=== PATIENT | male | born 1970 | race Two or more races ===

== ENCOUNTER 2020-08-21 06:28 | Outpatient (REF) | payer OTHER, SELFPAY ==
[2020-08-21 07:02] LABS: MANUAL DIFF FLAG NO
[2020-08-21 07:06] LABS: Basophils Absolute Auto 0.1 X10*3/uL (0.0-0.2); Basophils Percent Auto 0.8 % (0-2); Eosinophils Absolute Auto 0.2 X10*3/uL (0.0-0.4); Eosinophils Percent Auto 2.4 % (0-4); Hematocrit 47.1 % (42-52); Hemoglobin 15.6 g/dl (14.0-18.0); Imm Gran Abs Auto 0.02 X10*3/uL (0.00-0.03); Imm Gran Pct Auto 0.3 % (0.0-0.4); Lymphocytes Absolute Auto 2.4 X10*3/uL (1.2-4.9); Mean Corpuscular HGB Conc 33.1 g/dl (31.0-36.0); Mean Corpuscular Hemoglobin 26.5 pg (27.0-33.0); Mean Platelet Volume 9.3 fL (9.4-12.4); Monocytes Absolute Auto 0.8 X10*3/uL (0.1-1.2); Monocytes Percent Auto 11.6 % (2-11); Neutrophils Absolute Auto 3.1 X10*3/uL (2.0-8.3); Neutrophils Percent Auto 47.9 % (45-73); Platelet Count 253 X10*3/uL (160-400); Red Blood Count 5.89 X10*6/uL (4.60-5.80); Red Cell Distribution Width 13.5 % (11.0-16.0); White Blood Count 6.5 X10*3/uL (4.8-10.8)
[2020-08-21 07:35] LABS: Alanine Aminotransferase 35 U/L (0-40); Albumin Level 4.5 g/dL (3.5-5.0); Alkaline Phosphatase 68 U/L (39-117); Anion Gap 11 (12-20); Aspartate Amino Transferase 21 U/L (5-37); Bilirubin Total 0.4 mg/dL (0.0-1.0); Blood Urea Nitrogen 15 mg/dL (9-16); Calcium 9.2 mg/dL (8.4-10.2); Carbon Dioxide 29 mmol/L (22-29); Chloride 104 mmol/L (96-108); Cholesterol 190 mg/dL; Estimated Glomerular Filt Rate > 60; Glucose Fasting 113 mg/dL (60-99); HDL Cholesterol 34 mg/dL; LDL Cholesterol Calculated 113 mg/dl; Potassium 4.8 mmol/l (3.3-5.1); Sodium 139 mmol/L (135-145); Total Protein 7.4 g/dL (6.5-8.0); Triglycerides 216 mg/dL
[2020-08-21 07:57] LABS: Prostate Specific Antigen Scr 0.69 ng/mL (<0.05-4.0); TSH reflex Free T4 3.28 mIU/mL (0.32-4.0)
[2020-08-21 08:20] LABS: Glucose Urine UA NEG (NEG); Leukocyte Esterase Urine NEG (NEG); Nitrite Urine NEG (NEG); PH 5.5 (5.0-8.0); Specific Gravity - Urine 1.025 (1.005-1.025); Urine Blood NEG (NEG); Urine Ketones NEG (NEG); Urine Protein NEG (NEG-TRACE)
[2020-08-21 08:31] LABS: UACC Culture Trigger NO
[2020-08-21 08:32] LABS: Appearance Urine CLEAR; Color Urine YELLOW
[2020-08-21 08:45] LABS: RBC Urine 0 /HPF (0); WBC Urine 0 /HPF (0-4)
== END 2020-08-21 06:29 | disposition home or self-care (01) ==
LOC: HO.LAB 06:28
PROVIDERS: PCP Internal Medicine; Visit Provider Internal Medicine
DX: E66.01 Morbid (severe) obesity due to excess calories (principal); Z00.00 Encounter for general adult medical examination without abnormal findings; I10 Essential (primary) hypertension
CPT/HCPCS: 36415; 80053; 80061; 81003; 81015; 84153; 84443; 85025

== ENCOUNTER → 2020-08-30 13:56 | Outpatient (BNVA) | payer OTHER, SELFPAY | PROVIDERS: PCP Internal Medicine; Referring Provider Internal Medicine; Visit Provider Physician Assistant | DX: Z76.89 Persons encountering health services in other specified circumstances (principal) ==

== ENCOUNTER 2022-03-17 07:44 | Outpatient (REF) | payer OTHER, SELFPAY ==
[2022-03-17 08:10] LABS: MANUAL DIFF FLAG NO
[2022-03-17 08:38] LABS: Basophils Percent Auto 0.6 % (0-2); Eosinophils Absolute Auto 0.1 X10*3/uL (0.0-0.4); Eosinophils Percent Auto 1.7 % (0-4); Hematocrit 45.5 % (42.0-52.0); Hemoglobin 15.2 g/dl (14.0-18.0); Imm Gran Abs Auto 0.02 X10*3/uL (0.00-0.03); Imm Gran Pct Auto 0.3 % (0.0-0.4); Lymphocytes Absolute Auto 2.5 X10*3/uL (1.2-4.9); Lymphocytes Percent Auto 38.8 % (20-40); Mean Corpuscular HGB Conc 33.4 g/dl (31.0-36.0); Mean Corpuscular Hemoglobin 26.3 pg (27.0-33.0); Mean Corpuscular Volume 78.9 fL (80.0-98.0); Mean Platelet Volume 9.5 fL (9.4-12.4); Monocytes Absolute Auto 0.7 X10*3/uL (0.1-1.2); Monocytes Percent Auto 10.4 % (2-11); Neutrophils Absolute Auto 3.2 x10*3/uL (2.0-8.3); Neutrophils Percent Auto 48.2 % (45-73); Platelet Count 247 X10*3/uL (160-400); Red Blood Count 5.77 X10*6/uL (4.60-5.80); Red Cell Distribution Width 14.4 % (11.0-16.0); White Blood Count 6.5 X10*3/uL (4.8-10.8)
[2022-03-17 08:42] LABS: Appearance Urine CLEAR; Color Urine YELLOW; Glucose Urine UA NEG (NEG); Leukocyte Esterase Urine NEG (NEG); Nitrite Urine NEG (NEG); PH 5.5 (5.0-8.0); Specific Gravity - Urine 1.025 (1.005-1.025); Urine Blood NEG (NEG); Urine Ketones NEG (NEG); Urine Protein NEG (NEG-TRACE)
[2022-03-17 09:14] LABS: Alanine Aminotransferase 22 U/L (0-40); Albumin Level 4.1 g/dL (3.5-5.0); Alkaline Phosphatase 69 U/L (39-117); Anion Gap 13 (12-20); Aspartate Amino Transferase 20 U/L (5-37); Bilirubin Total 0.8 mg/dL (0.0-1.0); Blood Urea Nitrogen 16 mg/dL (9-16); Calcium 9.4 mg/dL (8.4-10.2); Carbon Dioxide 27 mmol/L (22-29); Chloride 102 mmol/L (96-108); Cholesterol 185 mg/dL; Estimated Glomerular Filt Rate > 60; Glucose Fasting 107 mg/dL (60-99); HDL Cholesterol 39 mg/dL; LDL Cholesterol Calculated 126 mg/dl; Potassium 4.7 mmol/L (3.3-5.1); Sodium 137 mmol/L (135-145); Total Protein 7.1 g/dL (6.5-8.0); Triglycerides 101 mg/dL
[2022-03-17 09:28] LABS: Prostate Specific Antigen Scr 0.72 ng/mL (<0.05-4.0); Vitamin D 25-OH Total 29.3 ng/mL (>30)
== END 2022-03-17 07:45 | disposition home or self-care (01) ==
LOC: HO.LAB 07:44
PROVIDERS: PCP Internal Medicine; Visit Provider Internal Medicine
DX: Z00.00 Encounter for general adult medical examination without abnormal findings (principal); Z12.5 Encounter for screening for malignant neoplasm of prostate; E78.00 Pure hypercholesterolemia, unspecified; I10 Essential (primary) hypertension; E55.9 Vitamin D deficiency, unspecified
CPT/HCPCS: 36415; 80053; 80061; 81003; 82306; 84153; 84443; 85025

== ENCOUNTER 2022-11-06 11:44 | Day surgery (SDC) | payer OTHER, SELFPAY ==
--- NOTE | 2022-11-05 13:24 | P.CONAN_ITS ---
Documented by User: Sherry Blackburn NP 11/05/22 13:25 HPI - Anesthesia Eval Consult details Narrative: 52yo M for Colonoscopy PMFSH Active Problems Active Problems: All Active Problems (Updated 07/22/22 @ 15:16 by Pablo Ferguson MD) Impaired fasting glucose (Acute) Pure hypercholesterolemia (Acute) Colon cancer screening (Acute) Obesity (BMI 30-39.9) (Acute) Annual physical exam (Acute) Morbid obesity with BMI of 40.0-44.9, adult (Acute) Benign essential hypertension (Acute) Lumbar degenerative disc disease (Acute) GERD (gastroesophageal reflux disease) (Acute) Ganglion cyst of dorsum of left wrist (Acute) Past Medical History Medical History (Updated 11/06/22 @ 12:37 by Kendal Spangler RN) Benign essential hypertension GERD (gastroesophageal reflux disease) Lumbar degenerative disc disease Obesity (BMI 30-39.9) Pure hypercholesterolemia Family History Family History Father Hyperlipidemia Mother Hyperlipidemia Diabetes Surgical History Surgical History History of microdiscectomy Hx of knee surgery Social History Social History Housing: House Alcohol intake: current Alcohol intake frequency: a few times a week Patient Tobacco Use Status: Former Tobacco user Second Hand Smoke Exposure: Yes Use of substances other than those prescribed or required for medical reasons: No Are you DNR?: No Advance Directives: No Advance Directives Information Provided: Yes service: No Current occupational status: employed Cognitive needs: No Hearing needs: No Vision needs: No Meds Allergies Allergy/AdvReac Type Severity Reaction Status Date / Time No Known Allergies Allergy Verified 11/06/22 12:56 Exam Exam Date and Time: November 05, 2022 1324 Pertinent Lab Results Pertinent Lab Results: Laboratory Tests 03/17/22 03/17/22 08:09 08:09 WBC 6.5 Hgb 15.2 Hct 45.5 Plt Count 247 Sodium 137 Potassium 4.7 Chloride 102 Carbon Dioxide 27 BUN 16 Creatinine 0.87 Assessment and Plan Assessment Anesthesia Assessment: Chart Reviewed Documented by User: Leroy Sawyer MD 11/06/22 14:02 [facility] Past Medical History Medical History (Updated 11/06/22 @ 12:37 by Kendal Spangler, RN) Benign essential hypertension GERD (gastroesophageal reflux disease) Lumbar degenerative disc disease Obesity (BMI 30-39.9) Pure hypercholesterolemia Family History Family History Father Hyperlipidemia Mother Hyperlipidemia Diabetes Family history of problems with anesthesia: No Surgical History Surgical History History of microdiscectomy Hx of knee surgery History of Problems with Anesthesia: No Social History Social History Housing: House Alcohol intake: current Alcohol intake frequency: a few times a week Patient Tobacco Use Status: Former Tobacco user Second Hand Smoke Exposure: Yes Use of substances other than those prescribed or required for medical reasons: No Are you DNR?: No Advance Directives: No Advance Directives Information Provided: Yes service: No Current occupational status: employed Cognitive needs: No Hearing needs: No Vision needs: No Meds Allergies Allergy/AdvReac Type Severity Reaction Status Date / Time No Known Allergies Allergy Verified 11/06/22 12:56 Exam Airway Mallampati Class: III TM Dist: >3cm Neck ROM: Full Loose/Missing/Broken Teeth: Yes (chipped teeth in the back ) Heart: S1,S2 Lungs: b/l breath sounds Assessment and Plan Final Anesthetic Review Family History of Problems with Anesthesia: No History of Problems with Anesthesia: No NPO: Yes Final Preanesthetic Review: Meds/Allgs Chart Reviewed, Consent Obtained/Reviewed and Anes Risks/Benef Reviewed Anesthetic Plan Anesthetic Plan: MAC: Disposition: Standard PACU
[2022-11-06 12:35] VITALS: BMI 37.1
[2022-11-06 12:45] VITALS: BP 147/88; PULSE 69; RESP 15; TEMP 36; O2SAT 98
[2022-11-06] MEDS: Lactated Ringers 1,000 ML 100 ML IVCONT (12:56)
--- NOTE | 2022-11-06 14:13 | MHC.SHP ---
Pre-Procedural Eval Section A Date of Service: 11/06/22 Section B Chief Complaint: screening Relevant Family History (Specify if Yes): No Relevant Social History: None Present Medications: see Short Stay Collaborative assessment Medical History: Significant History (Benign essential hypertension GERD (gastroesophageal reflux disease) Lumbar degenerative disc disease Obesity (BMI 30-39.9) Pure hypercholesterolemia) History of Previous Operations: Relevant previous surgery/procedure and date(s) (History of microdiscectomy Hx of knee surgery) Allergies: Allergies Allergy/AdvReac Type Severity Reaction Status Date / Time No Known Allergies Allergy Verified 11/06/22 12:56 Review of Systems Sugical H&P ROS: Negative: Constitution, Cardiovascular, Respiratory, Neurological, Psychiatric, Hem-Onc, Allergic/Immunologic, Gastrointestinal, Genitourinary, Musculoskeletal, Integumentary, Endocrine and Eyes/Ears/Nose/Throat Exam Surgical H&P Exam: Normal: HEENT, Normal: Heart, Normal: Lungs, Normal: Extremities, Normal: Abdomen, Normal: Skin and Normal: Neurological Plan Diagnosis/Plan: Unchanged I have reviewed the history and physical and performed a pertinent physical examination on my patient. No changes have occurred unless specified. Time Spent With Patient Time: Total time managing care of this patient today ____ minutes.
--- NOTE | 2022-11-06 14:44 | W.PM.OPN ---
Operative Note Operative Note Date of Service: 11/06/22 Narrative: Operative Information Procedure Description: Colonoscopy Indication: screening Anesthesia: MAC COLONOSCOPY Instrument: Olympus variable stiffness pediatric scope 190L Colonoscopy Monitoring: Vital signs and clinical assessment, continuous EKG monitoring, Pulse oximetry, Carbon Dioxide monitoring and blood pressure monitoring were done throughout the procedure. Colon withdrawal time was 10 minutes. Procedure: The patient was placed in the left lateral decubitis position and pre-procedure medications were administered. After a digital rectal examination of the ano-rectum, the video colonoscope was inserted into the rectum and advanced through the colon to the cecum/TI. The colonoscope was slowly withdrawn in a retrograde panoramic fashion and the colon mucosa was carefully examined including a retroflexed view of the rectum. Findings and interventions are described below. Procedure Difficulty: easy Findings: Terminal Ileum-normal Cecum: 6-8 mm sessile polyp removed with cold snare Ascending Colon: normal Transverse Colon -normal Descending Colon: 6-7 mm sessile polyp removed with cold forceps Sigmoid Colon: mdoerate diverticulosis Rectum: Retroflexion with medium sized internal hemorrhoids, grade I Anorectum - normal Colon preparation: Grannis Bowel Preparation Scale Right colon; 3 Transverse colon: 2 Left colon; 2 (0 = Unprepared colon segment with mucosa not seen due to solid stool that cannot be cleared. 1 = Portion of mucosa of the colon segment seen, but other areas of the colon segment not well seen due to staining, residual stool and/or opaque liquid. 2 = Minor amount of residual staining, small fragments of stool and/or opaque liquid, but mucosa of colon segment seen well. 3 = Entire mucosa of colon segment seen well with no residual staining, small fragments of stool or opaque liquid) Impression and Post Procedure Diagnosis: polyps internal hemorrhoids diverticular disease Plan: High fiber diet leaflet Avoid straining at stool, epsom salts and sitz bath, anusol supps or cream Repeat Colonoscopy in 5 years if adenomatous polyps, 10 yrs if hyperplastic/benign or earlier if clinically indicated Above findings were reviewed with the patient and relevant handouts were provided if indicated.
[2022-11-06 14:48] VITALS: BP 130/78; PULSE 77; RESP 16; TEMP 36.1; O2SAT 97
[2022-11-06 15:03] VITALS: BP 130/82; PULSE 71; RESP 15; O2SAT 97
[2022-11-06 15:18] VITALS: BP 136/95; PULSE 66; RESP 15; TEMP 36.4; O2SAT 97
== END 2022-11-06 15:57 | disposition home or self-care (01) ==
PROVIDERS: PCP Internal Medicine; Visit Provider Internal Medicine Gastroenterology
PROC: 0DJD8ZZ Inspection of Lower Intestinal Tract, Via Natural or Artificial Opening Endoscopic (ICD-10-PCS; CPT 45378; principal; 2022-11-06 13:10)
DX: Z12.11 Encounter for screening for malignant neoplasm of colon (principal); K63.5 Polyp of colon; K57.30 Diverticulosis of large intestine without perforation or abscess without bleeding; K64.0 First degree hemorrhoids; K21.9 Gastro-esophageal reflux disease without esophagitis; I10 Essential (primary) hypertension; E78.00 Pure hypercholesterolemia, unspecified; E66.9 Obesity, unspecified; Z68.37 Body mass index [BMI] 37.0-37.9, adult; Z79.899 Other long term (current) drug therapy; Z87.891 Personal history of nicotine dependence
CPT/HCPCS: 45385; 45380; 88305

== ENCOUNTER 2023-06-13 08:17 | Outpatient (REF) | payer OTHER, SELFPAY ==
[2023-06-13 09:02] LABS: Estimated Average Glucose 117 mg/dL; Hemoglobin A1c % 5.7 %
[2023-06-13 09:18] LABS: Alanine Aminotransferase 34 U/L (0-40); Albumin Level 4.4 g/dL (3.5-5.0); Alkaline Phosphatase 80 U/L (39-117); Anion Gap 18 (12-20); Aspartate Amino Transferase 25 U/L (5-37); Bilirubin Total 0.4 mg/dL (0.0-1.0); Blood Urea Nitrogen 16 mg/dL (9-16); Calcium 9.7 mg/dL (8.4-10.2); Carbon Dioxide 23 mmol/L (22-29); Chloride 103 mmol/L (96-108); Cholesterol 190 mg/dL; Estimated Glomerular Filt Rate > 60; Glucose Fasting 110 mg/dL (60-99); HDL Cholesterol 36 mg/dL; LDL Cholesterol Calculated 121 mg/dl; Potassium 4.8 mmol/L (3.3-5.1); Sodium 139 mmol/L (135-145); Total Protein 7.9 g/dL (6.5-8.0); Triglycerides 166 mg/dL
== END 2023-06-13 08:18 | disposition home or self-care (01) ==
LOC: HO.LAB 08:17
PROVIDERS: PCP Internal Medicine; Visit Provider Internal Medicine
DX: R73.01 Impaired fasting glucose (principal); E78.00 Pure hypercholesterolemia, unspecified
CPT/HCPCS: 36415; 80053; 80061; 83036

== ENCOUNTER 2023-06-17 09:26 | Outpatient (AMB) | payer OTHER, SELFPAY ==
[2023-06-17 09:28] VITALS: BP 136/72; PULSE 63; O2SAT 99; BMI 38.7
--- NOTE | 2023-06-17 09:28 | MHC.PC.OV ---
Vital Signs 06/17/23 09:28 Height 5 ft 6 in Weight 240 lb BMI 38.7 BP 136/72 Blood Pressure Location Lt brachial Position Sitting Pulse 63 Pulse Source Pulse Oximeter Temp Source Skin Pulse Oximetry (%) 99 Intake Visit Reasons: HTN, IFG, dyslipidemia Allergies No Known Allergies Allergy (Verified 06/17/23 10:06) Medication List - Last Reconciled 06/17/23 by Pablo Ferguson MD cholecalciferol (vitamin D3) 25 mcg PO DAILY lisinopril 10 mg PO DAILY 90 days Tobacco use date assessed: 06/17/23 Dental Screening Dental Screen Date: 06/17/23 Did you have a dental visit in the last 12 months?: Yes Did you have a dental problem in the last 6 months where you did not have access to dental care?: No Was dental information given to patient?: Patient has dentist HPI HTN, IFG, dyslipidemia HPI Details Patient comes in today for his follow up visit States that he feels okay He denies any headaches or dizziness Denies any chest pains, no SOB No nausea/vomiting, no abdominal pain No change in bowel habits noted Had his follow up labs done a few days ago - to discuss his results [facility] Medical History (Updated 06/17/23 @ 10:17 by Pablo Ferguson MD) Benign essential hypertension GERD (gastroesophageal reflux disease) Lumbar degenerative disc disease Obesity (BMI 30-39.9) Pure hypercholesterolemia Vitamin D deficiency Surgical History History of microdiscectomy Hx of colonoscopy Hx of knee surgery Family History Father Hyperlipidemia Mother Hyperlipidemia Diabetes Social History Housing: House Alcohol intake: current Alcohol intake frequency: a few times a week Patient Tobacco Use Status: Former Tobacco user Second Hand Smoke Exposure: Yes service: No Current occupational status: employed Cognitive needs: No Hearing needs: No Vision needs: No Questionnaire Thrive Questionnaire Date Thrive assessed: 12/03/22 AUDIT C Alcohol Use Questionnaire (AUDIT-C) 1. How often do you have a drink containing alcohol?: 2-3 times a week 2. How many drinks containing alcohol do you have on a typical day when you are drinking?: 1 or 2 3. How often do you have six or more drinks on one occasion?: Never Total Score: 3 Score Reviewed/Action Taken: Yes LLUVIA-7 AMB Questionnaire LLUVIA-7 Date LLUVIA - 7 assessed: 12/03/22 Source: Developed by Drs. Maurisio Lopez, Camille Mccray, Hunter Prasad and colleagues, with an educational jessi from [employer]. Review of Systems Const Denies fatigue, Denies fever(s) and Denies headache(s) ENT Denies dysphagia, Denies dizziness, Denies otalgia, Denies headache(s), Denies odynophagia and Denies sore throat Card Denies chest pain, Denies palpitations and Denies dyspnea Resp Denies cough and Denies dyspnea GI Denies abdominal pain, Denies constipation, Denies dysphagia, Denies heartburn, Denies diarrhea, Denies nausea, Denies odynophagia and Denies vomiting Denies dysuria, Denies nocturia and Denies urinary frequency Neuro Denies dizziness and Denies headache(s) Endo Denies fatigue and Denies palpitations Physical exam (Primary Care) Vital Signs: Last Vital Signs Pulse 63 06/17/23 09:28 BP 136/72 06/17/23 09:28 Pulse Ox 99 06/17/23 09:28 BMI result Body Mass Index 38.7 Tobacco/Smoking Status: Tobacco use Status Tobacco use date assessed 06/17/23 06/17/23 09:34 Patient Tobacco Use Status Former Tobacco user 06/17/23 09:29 Thrive Assessment: Date of Thrive Assessment Date Thrive assessed 12/03/22 06/17/23 09:29 Const General: no acute distress and alert HENMT Ears: TM's normal bilaterally and EAC's normal Throat: Yes posterior oropharynx normal and Yes tonsils normal (no TP congestion) Neck Neck: Yes no lymphadenopathy and Yes supple Resp Auscultation: clear to auscultation bilaterally, no rales and no wheezes Cardio Rate: regular rate Rhythm: regular rhythm Heart sounds: no murmurs GI Palpation (GI): Soft to palpation and nontender Auscultation: normal bowel sounds Skin Rashes: no rashes Extrem General: Yes no clubbing, cyanosis or edema Results Reviewed Results Reviewed: Laboratory Tests 06/13/23 06/13/23 08:34 08:34 Sodium 139 Potassium 4.8 Creatinine 0.95 Estimated GFR > 60 Fasting Glucose 110 H Hemoglobin A1c % 5.7 Calcium 9.7 AST 25 ALT 34 Triglycerides 166 Cholesterol 190 LDL Cholesterol, Calc 121 HDL Cholesterol 36 Assessment and Plan Assessment & Plan (1) Benign essential hypertension: Code(s): I10 - Essential (primary) hypertension Plan: Reinforced low sodium diet - goal is systolic BP of 120 mm or less Continue Lisinopril 10 mg QD for now but advised that we will need to consider increasing his dose soon if his systolic BP remains higher than recommended Patient instructed to continue checking and monitoring his blood pressure regularly (2) Pure hypercholesterolemia: Comment: no meds currently--borderline Code(s): E78.00 - Pure hypercholesterolemia, unspecified Plan: Results of his labs done a few days ago reviewed and discussed with patient - his cholesterol numbers have improved only minimally from previous overall Reinforced low cholesterol diet Will recheck his labs and fasting lipids in 4 months for follow up (3) Impaired fasting glucose: Code(s): R73.01 - Impaired fasting glucose Plan: Patient's FBS was again elevated at 110 mg/dl on his recent labs; HgbA1c was normal at 5.7% Reinforced low calorie diet/exercise as tolerated Will recheck FBS and HgbA1c in 4 months for follow up (4) GERD (gastroesophageal reflux disease): Code(s): K21.9 - Gastro-esophageal reflux disease without esophagitis Qualifiers: Esophagitis presence: without esophagitis Qualified Code(s): K21.9 - Gastro-esophageal reflux disease without esophagitis Plan: Dietary restrictions reinforced (5) Vitamin D deficiency: Code(s): E55.9 - Vitamin D deficiency, unspecified Plan: Advised that his Vitamin D level on his recent labs is still slightly below normal Continue Vitamin D3 1000 units QD (6) Lumbar degenerative disc disease: Comment: S/P left L4-L5 minimally invasive microdiscectomy by Dr. Roldan in 03/2018 Code(s): M51.36 - Other intervertebral disc degeneration, lumbar region Plan: Reinforced activity and weight-lifting restrictions (7) Obesity (BMI 30-39.9): Code(s): E66.9 - Obesity, unspecified Plan: Reinforced diet/exercise as tolerated/lose weight Plan To return in 4 months for his next annual physical examination Orders: Orders Comprehensive [place]. Panel Fast 4 Months E78.00 - Pure hypercholesterolemia, unspecified, Z00.00 - Encounter for general adult medical examination without abnormal findings Hemoglobin A1c 4 Months E11.9 - Type 2 diabetes mellitus without complications, Z00.00 - Encounter for general adult medical examination without abnormal findings Lipid Panel 4 Months E78.00 - Pure hypercholesterolemia, unspecified, Z00.00 - Encounter for general adult medical examination without abnormal findings Prostate Specific Antigen Scr 4 Months Z00.00 - Encounter for general adult medical examination without abnormal findings TSH reflex Free T4 4 Months E78.00 - Pure hypercholesterolemia, unspecified, Z00.00 - Encounter for general adult medical examination without abnormal findings Vitamin D 25-OH Total 4 Months E55.9 - Vitamin D deficiency, unspecified, Z00.00 - Encounter for general adult medical examination without abnormal findings Complete Blood Count Auto Diff 4 Months I10 - Essential (primary) hypertension, Z00.00 - Encounter for general adult medical examination without abnormal findings UA CC w/rflx Micro + Cult 4 Months R30.0 - Dysuria, Z00.00 - Encounter for general adult medical examination without abnormal findings Coding Level of Care Code Est Pt Level 4 (33038) Diagnoses Benign essential hypertension I10 Pure hypercholesterolemia E78.00 Impaired fasting glucose R73.01 GERD (gastroesophageal reflux disease) K21.9 Esophagitis presence: without esophagitis Vitamin D deficiency E55.9 Lumbar degenerative disc disease M51.36 Obesity (BMI 30-39.9) E66.9
== END 2023-06-17 10:18 | disposition home or self-care (01) ==
PROVIDERS: PCP Internal Medicine; Visit Provider Internal Medicine
DX: I10 Essential (primary) hypertension (principal); E55.9 Vitamin D deficiency, unspecified; K21.9 Gastro-esophageal reflux disease without esophagitis; E78.00 Pure hypercholesterolemia, unspecified; R73.01 Impaired fasting glucose; M51.36 Other intervertebral disc degeneration, lumbar region; E66.9 Obesity, unspecified
CPT/HCPCS: 99214

== ENCOUNTER 2023-10-24 07:06 | Outpatient (REF) | payer OTHER, SELFPAY ==
[2023-10-24 07:35] LABS: MANUAL DIFF FLAG NO
[2023-10-24 07:44] LABS: Basophils Percent Auto 0.6 % (0-2); Eosinophils Absolute Auto 0.1 X10*3/uL (0.0-0.4); Eosinophils Percent Auto 2.1 % (0-4); Hematocrit 47.4 % (42.0-52.0); Hemoglobin 15.8 g/dl (14.0-18.0); Imm Gran Abs Auto 0.02 X10*3/uL (0.00-0.03); Imm Gran Pct Auto 0.3 % (0.0-0.4); Lymphocytes Absolute Auto 2.4 X10*3/uL (1.2-4.9); Lymphocytes Percent Auto 38.8 % (20-40); Mean Corpuscular HGB Conc 33.3 g/dl (31.0-36.0); Mean Corpuscular Volume 78.1 fL (80.0-98.0); Mean Platelet Volume 9.3 fL (9.4-12.4); Monocytes Absolute Auto 0.7 X10*3/uL (0.1-1.2); Monocytes Percent Auto 10.9 % (2-11); Neutrophils Absolute Auto 2.9 x10*3/uL (2.0-8.3); Neutrophils Percent Auto 47.3 % (45-73); Platelet Count 250 X10*3/uL (160-400); Red Blood Count 6.07 X10*6/uL (4.60-5.80); Red Cell Distribution Width 13.8 % (11.0-16.0); White Blood Count 6.2 X10*3/uL (4.8-10.8)
[2023-10-24 08:07] LABS: Estimated Average Glucose 126 mg/dL
[2023-10-24 08:15] LABS: Alanine Aminotransferase 36 U/L (0-40); Albumin Level 4.3 g/dL (3.5-5.0); Alkaline Phosphatase 76 U/L (39-117); Anion Gap 13 (12-20); Aspartate Amino Transferase 20 U/L (5-37); Bilirubin Total 0.2 mg/dL (0.0-1.0); Blood Urea Nitrogen 10 mg/dL (9-16); Calcium 9.3 mg/dL (8.4-10.2); Carbon Dioxide 25 mmol/L (22-29); Chloride 106 mmol/L (96-108); Cholesterol 191 mg/dL (<200); Estimated Glomerular Filt Rate > 60; Glucose Random 110 mg/dL (60-115); HDL Cholesterol 34 mg/dL (>40); LDL Cholesterol Calculated 96 mg/dL (<100); Potassium 4.2 mmol/L (3.3-5.1); Sodium 140 mmol/L (135-145); Total Protein 7.7 g/dL (6.5-8.0); Triglycerides 308 mg/dL (<150)
[2023-10-24 08:32] LABS: Prostate Specific Antigen Scr 0.99 ng/mL (<0.05-4.0); TSH reflex Free T4 3.38 uIU/mL (0.32-4.0); Vitamin D 25-OH Total 37.5 ng/mL (>30)
[2023-10-24 08:56] LABS: Appearance Urine Clear; Color Urine Yellow; Glucose Urine UA Negative (Negative); Leukocyte Esterase Urine Negative (Negative); Nitrite Urine Negative (Negative); Specific Gravity - Urine 1.015 (1.005-1.025); Urine Blood Negative (Negative); Urine Ketones Negative (Negative); Urine Protein Negative (Neg-Trace)
[2023-10-24 09:00] LABS: Bacteria Urine None Seen (None Seen); Hyaline Casts Urine 0-2 /LPF (0-2); RBC Urine 0-2 /HPF (0-2); Squamous Epithelial Cell Urine 0-2 /HPF (0-2); WBC Urine 0-5 /HPF (0-5)
== END 2023-10-24 07:07 | disposition home or self-care (01) ==
LOC: HO.LAB 07:06
PROVIDERS: PCP Internal Medicine; Visit Provider Internal Medicine
DX: Z13.89 Encounter for screening for other disorder (principal)
CPT/HCPCS: 36415; 80053; 80061; 81001; 82306; 83036; 84153; 84443; 85025

== ENCOUNTER 2023-10-28 14:37 | Outpatient (AMB) | payer OTHER, SELFPAY ==
--- NOTE | 2023-10-28 14:38 | A.OFFPC_ITS ---
Vital Signs 10/28/23 14:39 Height 5 ft 6 in Weight 237 lb 6 oz BMI 38.3 BP 132/80 Blood Pressure Location Lt brachial Position Sitting Pulse 70 Pulse Source Pulse Oximeter Pulse Oximetry (%) 97 Oxygen Delivery Method Room Air Intake Visit Reasons: pe Management Tech Required: No Accompanied by: Self / Same As Patient Allergies No Known Allergies Allergy (Verified 10/28/23 15:26) Medication List - Last Reconciled 10/28/23 by Pablo Ferguson MD cholecalciferol (vitamin D3) 25 mcg PO DAILY lisinopril 10 mg PO DAILY 90 days Tobacco use date assessed: 10/28/23 Dental Screening Dental Screen Date: 10/28/23 Did you have a dental visit in the last 12 months?: Yes Did you have a dental problem in the last 6 months where you did not have access to dental care?: No Was dental information given to patient?: Patient has dentist HPI pe HPI Details Patient comes in today for his annual physical examination States that his (chronic) low back pain has been increasing lately States that he feels okay otherwise and has had no other acute issues He denies any headaches or dizziness Denies any chest pains, no shortness of breath No nausea /vomiting, no abdominal pain No change in bowel habits noted He denies any acute urinary symptoms Had his follow-up labs done a few days ago - to discuss his results He had his colonoscopy last done in October 2022 - (+) hyperplastic polyps; he was recommended to get a repeat colonoscopy in 10 years [facility] Medical History Vitamin D deficiency Pure hypercholesterolemia Obesity (BMI 30-39.9) Benign essential hypertension Lumbar degenerative disc disease GERD (gastroesophageal reflux disease) Surgical History Hx of colonoscopy History of microdiscectomy Hx of knee surgery Family History Father Hyperlipidemia Mother Hyperlipidemia Diabetes Social History Housing: House Alcohol intake: current Alcohol intake frequency: a few times a week Patient Tobacco Use Status: Former Tobacco user e-Cigarette/Vaping Use: Never Used Second Hand Smoke Exposure: Yes service: No Current occupational status: employed Cognitive needs: No Hearing needs: No Vision needs: No Questionnaire PHQ-9 Over the last 2 weeks, how often have you been bothered by any of the following problems? 1. Little interest or pleasure in doing things: not at all 2. Feeling down, depressed, or hopeless: not at all 3. Trouble falling or staying asleep, or sleeping too much: not at all 4. Feeling tired or having little energy: not at all 5. Poor appetite or overeating: not at all 6. Feeling bad about yourself - or that you are a failure or have let yourself or your family down: not at all 7. Trouble concentrating on things, such as reading the newspaper or watching television: not at all 8. Moving or speaking so slowly that other people could have noticed. Or the opposite - being so fidgety or restless that you have been moving around a lot more than usual: not at all 9. Thoughts that you would be better off or of hurting yourself in some way: not at all Total score: 0 Depression Screening Interpretation: Negative Depression Screening Done: Yes [id number] - PHQ-9 Billing: Yes Source: Developed by Drs. Maurisio Lopez, Camille Mccray, Hunter Prasad and colleagues, with an educational jessi from [employer]. Thrive Questionnaire Date Thrive assessed: 10/28/23 I am a: Patient What is your living situation today?: I have a steady place to live Within the past 12 months, did the food you bought not last and you didn't have the money to get more?: Never true Within the past 12 months, did you worry whether your food would run out before you got money to buy more?: Never true Do you have trouble paying for medicines?: No Do you have trouble getting transportation to medical appointments?: No Do you have trouble paying your heating and electricity bill?: No Do you have trouble taking care of your child, family member or friend?: No Do you have trouble with day-to-day activities such as bathing, preparing meals, shopping, managing finances, etc.?: No Are you currently unemployed and looking for a job?: No Are you interested in more education?: No Please select the resources that you would like help with: None Currently or been in a relationship where the following occur: no concerns reported AUDIT C Alcohol Use Questionnaire (AUDIT-C) 1. How often do you have a drink containing alcohol?: 2-3 times a week 2. How many drinks containing alcohol do you have on a typical day when you are drinking?: 1 or 2 3. How often do you have six or more drinks on one occasion?: Never Total Score: 3 Score Reviewed/Action Taken: Yes LLUVIA-7 AMB Questionnaire LLUVIA-7 Date LLUVIA - 7 assessed: 10/28/23 Feeling nervous, anxious, or on edge: 0 = Not at all Not being able to stop or control worryin = Not at all Worrying too much about different things: 0 = Not at all Trouble relaxin = Not at all Being so restless that it is hard to sit still: 0 = Not at all Becoming easily annoyed or irritable: 0 = Not at all Feeling afraid as if something awful might happen: 0 = Not at all Total LLUVIA-7 score (0-4 normal; 5-9 mild; 10-14 moderate; 15-21 severe): 0 Source: Developed by Drs. Maurisio Lopez, Camille Mccray, Hunter Prasad and colleagues, with an educational jessi from [employer]. Review of Systems Const Denies chills, Denies fatigue, Denies fever(s), Denies headache(s), Denies malaise and Denies weakness Eyes Denies blurry vision, Denies change in vision, Denies irritation and Denies itchy eyes ENT Denies dysphagia, Denies dizziness, Denies otalgia, Denies headache(s), Denies nasal congestion, Denies neck pain, Denies odynophagia and Denies sore throat Card Denies chest pain, Denies rapid heart rate, Denies irregular heart rhythm, Denies palpitations and Denies dyspnea Resp Denies chest congestion, Denies cough, Denies dyspnea and Denies wheezing GI Denies abdominal pain, Denies bloating, Denies constipation, Denies dysphagia, Denies heartburn, Denies diarrhea, Denies nausea, Denies odynophagia and Denies vomiting Denies hematuria, Denies difficulty urinating, Denies dysuria, Denies urinary frequency and Denies urinary urgency Musc Reports back pain (over the lower back - increasing), Denies arthralgias, Denies joint swelling, Denies muscle weakness and Denies neck pain Skin/Breast Denies change in pigmentation, Denies lesions, Denies rash and Denies unusual bruising Neuro Denies dizziness, Denies headache(s), Denies paresthesias and Denies weakness Endo Denies fatigue and Denies palpitations Aller/Immun Denies itchy eyes and Denies wheezing Physical exam (Primary Care) Vital Signs: Last Vital Signs Pulse 70 10/28/23 14:39 BP 132/80 10/28/23 14:39 Pulse Ox 97 10/28/23 14:39 Oxygen Delivery Method Room Air 10/28/23 14:39 BMI result Body Mass Index 38.3 Tobacco/Smoking Status: Tobacco use Status Tobacco use date assessed 10/28/23 10/28/23 14:40 Patient Tobacco Use Status Former Tobacco user 10/28/23 14:40 e-Cigarette/Vaping Use Never Used 10/28/23 14:40 PHQ-9: PHQ-9 Score PHQ-9: Total score 0 10/28/23 15:26 Depression Screening Interpretation: Negative Thrive Assessment: Date of Thrive Assessment Date Thrive assessed 10/28/23 10/28/23 14:40 Currently or been in a relationship where the following occur: no concerns reported Const General: no acute distress, alert and awake Orientation/consciousness: patient oriented x3 HENMT Head: Yes normocephalic and Yes atraumatic Ears: external ears normal, TM's normal bilaterally and EAC's normal General nose exam: No nasal discharge present Face and sinus: Yes normal facial exam and Yes sinuses nontender Teeth and gingiva: dentition normal Throat: Yes posterior oropharynx normal and Yes tonsils normal (no TP congestion) Eyes Eyelids: Yes eyelids normal Conjunctivae: conjunctivae normal Pupils: Equal, round and reactive pupils present EOM: EOMs intact bilaterally Neck Neck: Yes no lymphadenopathy and Yes supple Thyroid: Thyroid normal Resp Auscultation: clear to auscultation bilaterally, no rales and no wheezes Cardio Rate: regular rate Rhythm: regular rhythm Heart sounds: no murmurs GI Palpation (GI): Soft to palpation, nontender and No hepatosplenomegaly present Auscultation: normal bowel sounds General: Yes no CVA tenderness Back/Spine/Pelvis Back: no CVA tenderness Thoracic/Lumbar Spine: thoracic and lumbar spine normal to inspection and lumbar spinal tenderness Skin Lesions: no lesions Rashes: no rashes Neuro General: patient oriented x3, moves all extremities, no focal motor deficits and CN's II-XI intact bilaterally Cranial nerves: Yes Equal, round and reactive pupils present Cognition (Neuro): normal cognition Gait exam (Neuro): Normal gait present Extrem General: Yes no clubbing, cyanosis or edema Results Reviewed Results Reviewed: Laboratory Tests 10/24/23 10/24/23 10/24/23 07:30 07:30 07:32 WBC 6.2 Hgb 15.8 Hct 47.4 Plt Count 250 Sodium 140 Potassium 4.2 Creatinine 0.81 Estimated GFR > 60 Random Glucose 110 Hemoglobin A1c % 6.0 Calcium 9.3 AST 20 ALT 36 Triglycerides 308 H Cholesterol 191 LDL Cholesterol, Calc 96 HDL Cholesterol 34 L PSA Screen 0.99 25-OH Vitamin D Total 37.5 TSH 3.38 Ur Specific [place] 1.015 Urine Protein Negative Urine Glucose (UA) Urine Blood 10/24/23 07:32 WBC Hgb Hct Plt Count Sodium Potassium Creatinine Estimated GFR Random Glucose Hemoglobin A1c % Calcium AST ALT Triglycerides Cholesterol LDL Cholesterol, Calc HDL Cholesterol PSA Screen 25-OH Vitamin D Total TSH Ur Specific [place] Urine Protein Urine Glucose (UA) Negative Urine Blood Negative Assessment and Plan Assessment & Plan (1) Annual physical exam: Code(s): Z00.00 - Encounter for general adult medical examination without abnormal findings Plan: Results of his labs done a few days ago reviewed and discussed with patient He had his colonoscopy last done in October 2022 - (+) hyperplastic polyps; he was recommended to get a repeat colonoscopy in 10 years (2) Benign essential hypertension: Code(s): I10 - Essential (primary) hypertension Plan: Reinforced low sodium diet - goal is systolic BP of 120 mm or less Continue Lisinopril 10 mg QD for now but advised again that we will need to consider increasing his dose if his systolic BP remains higher than recommended Patient is reminded to continue checking and monitoring his blood pressure regularly (3) Pure hypercholesterolemia: Comment: no meds currently--borderline Code(s): E78.00 - Pure hypercholesterolemia, unspecified Plan: Reinforced low cholesterol diet Will recheck his labs and fasting lipids in 4 months for follow up (4) Impaired fasting glucose: Code(s): R73.01 - Impaired fasting glucose Plan: Patient's FBS was again elevated at 110 mg/dl on his recent labs; HgbA1c was at 6.0% (was previously at 5.7%) Reinforced low calorie diet/exercise as tolerated Will recheck his FBS and HgbA1c in 4 months for follow up (5) GERD (gastroesophageal reflux disease): Code(s): K21.9 - Gastro-esophageal reflux disease without esophagitis Qualifiers: Esophagitis presence: without esophagitis Qualified Code(s): K21.9 - Gastro-esophageal reflux disease without esophagitis Plan: Dietary restrictions reinforced (6) Vitamin D deficiency: Code(s): E55.9 - Vitamin D deficiency, unspecified Plan: Corrected - continue Vitamin D3 1000 units QD (7) Lumbar degenerative disc disease: Comment: S/P left L4-L5 minimally invasive microdiscectomy by Dr. 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 Roldan a few months later Reinforced activity and weight-lifting restrictions As he reports experiencing increasing pain over his lower back lately, will send him at least for repeat lumbar spine x-rays for further evaluation for now Will start him on Tizanidine 4 mg Q 8 hours PRN for now (8) Obesity (BMI 30-39.9): Code(s): E66.9 - Obesity, unspecified Plan: Reinforced diet/exercise as tolerated/lose weight Plan Follow up in 4 months Orders: Orders XR lumbar spine 2-3V 10/28/23 M54.50 - Low back pain, unspecified Lipid Panel 4 Months E78.00 - Pure hypercholesterolemia, unspecified Complete Blood Count Auto Diff 4 Months I10 - Essential (primary) hypertension Comprehensive [place]. Panel Fast 4 Months E78.00 - Pure hypercholesterolemia, unspecified Medications: New tizanidine 4 mg PO Q8H 30 days PRN 90 tabs 0RF muscle spasms Coding Level of Care Code Est Pt Prev Care 40-64y([id number]) Diagnoses Annual physical exam Z00.00 Benign essential hypertension I10 Pure hypercholesterolemia E78.00 Impaired fasting glucose R73.01 Gastroesophageal reflux disease without esophagitis K21.9 Esophagitis presence: without esophagitis Vitamin D deficiency E55.9 Lumbar degenerative disc disease M51.36 Obesity (BMI 30-39.9) E66.9
[2023-10-28 14:39] VITALS: BP 132/80; PULSE 70; O2SAT 97; BMI 38.3
== END 2023-10-28 15:35 | disposition home or self-care (01) ==
PROVIDERS: PCP Internal Medicine; Visit Provider Internal Medicine
DX: E11.65 Type 2 diabetes mellitus with hyperglycemia (principal); E66.01 Morbid (severe) obesity due to excess calories; Z68.38 Body mass index [BMI] 38.0-38.9, adult
CPT/HCPCS: 83036; 99213; 99396

== ENCOUNTER 2024-09-19 10:12 | Outpatient (REF) | payer OTHER, SELFPAY ==
[2024-09-19 10:39] LABS: MANUAL DIFF FLAG NO
[2024-09-19 10:53] LABS: Basophils Percent Auto 0.6 % (0-2); Eosinophils Absolute Auto 0.1 X10*3/uL (0.0-0.4); Eosinophils Percent Auto 1.7 % (0-4); Hematocrit 45.4 % (42.0-52.0); Hemoglobin 15.4 g/dl (14.0-18.0); Imm Gran Abs Auto 0.02 X10*3/uL (0.00-0.03); Imm Gran Pct Auto 0.3 % (0.0-0.4); Lymphocytes Absolute Auto 2.3 X10*3/uL (1.2-4.9); Lymphocytes Percent Auto 36.5 % (20-40); Mean Corpuscular HGB Conc 33.9 g/dl (31.0-36.0); Mean Corpuscular Hemoglobin 26.9 pg (27.0-33.0); Mean Corpuscular Volume 79.2 fL (80.0-98.0); Mean Platelet Volume 9.3 fL (9.4-12.4); Monocytes Absolute Auto 0.7 X10*3/uL (0.1-1.2); Monocytes Percent Auto 11.1 % (2-11); Neutrophils Absolute Auto 3.2 x10*3/uL (2.0-8.3); Neutrophils Percent Auto 49.8 % (45-73); Platelet Count 236 X10*3/uL (160-400); Red Blood Count 5.73 X10*6/uL (4.60-5.80); Red Cell Distribution Width 14.1 % (11.0-16.0); White Blood Count 6.4 X10*3/uL (4.8-10.8)
[2024-09-19 13:14] LABS: Alanine Aminotransferase 27 U/L (0-40); Alkaline Phosphatase 73 U/L (39-117); Anion Gap 13 (12-20); Aspartate Amino Transferase 27 U/L (5-37); Bilirubin Total 0.4 mg/dL (0.0-1.0); Blood Urea Nitrogen 12 mg/dL (9-16); Calcium 9.3 mg/dL (8.4-10.2); Carbon Dioxide 29 mmol/L (22-29); Chloride 103 mmol/L (96-108); Cholesterol 165 mg/dL (<200); Estimated Glomerular Filt Rate > 60; Glucose Fasting 105 mg/dL (60-99); HDL Cholesterol 37 mg/dL (>40); LDL Cholesterol Calculated 93 mg/dL (<100); Potassium 4.6 mmol/L (3.3-5.1); Sodium 140 mmol/L (135-145); Total Protein 7.1 g/dL (6.5-8.0); Triglycerides 175 mg/dL (<150)
== END 2024-09-19 10:13 | disposition home or self-care (01) ==
LOC: HO.XRAY 10:12
PROVIDERS: PCP Internal Medicine; Visit Provider Internal Medicine
DX: E78.00 Pure hypercholesterolemia, unspecified (principal); I10 Essential (primary) hypertension; M54.50 Low back pain, unspecified
CPT/HCPCS: 36415; 72100; 80053; 80061; 85025

== ENCOUNTER 2024-09-23 15:23 | Outpatient (AMB) | payer OTHER, SELFPAY ==
[2024-09-23 15:27] VITALS: BP 142/78; PULSE 91; O2SAT 97; BMI 39.1
--- NOTE | 2024-09-23 15:27 | MHC.PC.OV ---
Vital Signs 09/23/24 15:27 Height 5 ft 6 in Weight 242 lb 6 oz BMI 39.1 BP 142/78 H Blood Pressure Location Lt brachial Position Sitting Pulse 91 Pulse Source Pulse Oximeter Pulse Oximetry (%) 97 Oxygen Delivery Method Room Air Intake Visit Reasons: HTN, hyperlipidemia, IFG, lumbar DDD Emergency Doctor Required: No Accompanied by: Self / Same As Patient Allergies No Known Allergies Allergy (Verified 09/23/24 15:47) Medication List - Last Reconciled 09/23/24 by Pablo Ferguson MD cholecalciferol (vitamin D3) 25 mcg PO DAILY lisinopril 10 mg PO DAILY 90 days tizanidine 4 mg PO Q8H PRN 30 days Tobacco use date assessed: 09/23/24 Dental Screening Dental Screen Date: 09/23/24 Did you have a dental visit in the last 12 months?: Yes Did you have a dental problem in the last 6 months where you did not have access to dental care?: No Was dental information given to patient?: Patient has dentist HPI HTN, hyperlipidemia, IFG, lumbar DDD HPI Details Patient comes in today for his follow up visit States that he has been experiencing a significant increase in his low back pain over the past few months He denies any recent injury or trauma to his lower back but he did undergo lumbar spine surgery (microdiskectomy) by Dr. Jamar sol in 2018 and he is concerned that he will need surgery again soon as he is now feeling similar to how he was before he underwent back surgery several years ago He also had his repeat lumbar spine x-rays done a few days ago and would like to know how his x-rays came out States that he feels okay otherwise He denies any headaches or dizziness Denies any chest pains, no shortness of breath No nausea /vomiting, no abdominal pain No change in bowel habits noted He had his follow-up labs done a few days ago - to discuss his results [facility] Medical History (Updated 09/24/24 @ 06:27 by Pablo Ferguson MD) Mixed hyperlipidemia Vitamin D deficiency Pure hypercholesterolemia Obesity (BMI 30-39.9) Benign essential hypertension Lumbar degenerative disc disease GERD (gastroesophageal reflux disease) Surgical History Hx of colonoscopy History of microdiscectomy Hx of knee surgery Family History Father Hyperlipidemia Mother Hyperlipidemia Diabetes Social History Housing: House Alcohol intake: current Alcohol intake frequency: a few times a week Patient Tobacco Use Status: Former Tobacco user e-Cigarette/Vaping Use: Never Used Second Hand Smoke Exposure: Yes service: No Current occupational status: employed Cognitive needs: No Hearing needs: No Vision needs: No Questionnaire PHQ-9 Over the last 2 weeks, how often have you been bothered by any of the following problems? 1. Little interest or pleasure in doing things: not at all 2. Feeling down, depressed, or hopeless: not at all 3. Trouble falling or staying asleep, or sleeping too much: not at all 4. Feeling tired or having little energy: not at all 5. Poor appetite or overeating: not at all 6. Feeling bad about yourself - or that you are a failure or have let yourself or your family down: not at all 7. Trouble concentrating on things, such as reading the newspaper or watching television: not at all 8. Moving or speaking so slowly that other people could have noticed. Or the opposite - being so fidgety or restless that you have been moving around a lot more than usual: not at all 9. Thoughts that you would be better off or of hurting yourself in some way: not at all Total score: 0 Depression Screening Interpretation: Negative Depression Screening Done: Yes 16657 - PHQ-9 Billing: Yes Source: Developed by Drs. Maurisio Lopez, Camille Mccray, Hunter Prasad and colleagues, with an educational jessi from [employer] Thrive Questionnaire Date Thrive assessed: 09/23/24 I am a: Patient What is your living situation today?: I have a steady place to live Within the past 12 months, did the food you bought not last and you didn't have the money to get more?: Never true Within the past 12 months, did you worry whether your food would run out before you got money to buy more?: Never true Do you have trouble paying for medicines?: No Do you have trouble getting transportation to medical appointments?: No Do you have trouble paying your heating and electricity bill?: No Do you have trouble taking care of your child, family member or friend?: No Do you have trouble with day-to-day activities such as bathing, preparing meals, shopping, managing finances, etc.?: No Are you currently unemployed and looking for a job?: No Are you interested in more education?: No Please select the resources that you would like help with: None Currently or been in a relationship where the following occur: No concerns reported THRIVE Score: 0 AUDIT C Alcohol Use Questionnaire (AUDIT-C) 1. How often do you have a drink containing alcohol?: Monthly or less 2. How many drinks containing alcohol do you have on a typical day when you are drinking?: 3 or 4 Total Score: 2 Score Reviewed/Action Taken: Yes LLUVIA-7 AMB Questionnaire LLUVIA-7 Date LLUVIA - 7 assessed: 09/23/24 Feeling nervous, anxious, or on edge: 0 = Not at all Not being able to stop or control worryin = Not at all Worrying too much about different things: 0 = Not at all Trouble relaxin = Not at all Being so restless that it is hard to sit still: 0 = Not at all Becoming easily annoyed or irritable: 0 = Not at all Feeling afraid as if something awful might happen: 0 = Not at all Total LLUVIA-7 score (0-4 normal; 5-9 mild; 10-14 moderate; 15-21 severe): 0 Source: Developed by Drs. Maurisio Lopez, Camille Mccray, Hunter Prasad and colleagues, with an educational jessi from [employer] Review of Systems Const Denies chills, Denies fatigue, Denies fever(s) and Denies headache(s) ENT Denies dysphagia, Denies dizziness, Denies otalgia, Denies headache(s), Denies neck pain, Denies odynophagia and Denies sore throat Card Denies chest pain, Denies irregular heart rhythm, Denies palpitations and Denies dyspnea Resp Denies chest congestion, Denies cough and Denies dyspnea GI Denies abdominal pain, Denies constipation, Denies dysphagia, Denies heartburn, Denies diarrhea, Denies nausea, Denies odynophagia and Denies vomiting Denies difficulty urinating, Denies dysuria, Denies urinary frequency and Denies urinary urgency Musc Reports back pain (over the lower back - increasing), Denies arthralgias and Denies neck pain Skin/Breast Denies rash Neuro Denies dizziness, Denies headache(s) and Denies paresthesias Endo Denies fatigue and Denies palpitations Physical exam (Primary Care) Vital Signs: Last Vital Signs Pulse 91 09/23/24 15:27 BP 142/78 H 09/23/24 15:27 Pulse Ox 97 09/23/24 15:27 Oxygen Delivery Method Room Air 09/23/24 15:27 BMI result Body Mass Index 39.1 Tobacco/Smoking Status: Tobacco use Status Tobacco use date assessed 09/23/24 09/23/24 15:28 Patient Tobacco Use Status Former Tobacco user 09/23/24 15:28 e-Cigarette/Vaping Use Never Used 09/23/24 15:28 PHQ-9: PHQ-9 Score PHQ-9: Total score 0 09/23/24 15:48 Depression Screening Interpretation: Negative Thrive Assessment: Date of Thrive Assessment Date Thrive assessed 09/23/24 09/23/24 15:28 Currently or been in a relationship where the following occur: No concerns reported Const General: no acute distress and alert HENMT Ears: TM's normal bilaterally and EAC's normal Throat: Yes posterior oropharynx normal and Yes tonsils normal (no TP congestion) Neck Neck: Yes no lymphadenopathy and Yes supple Thyroid: Thyroid normal Resp Auscultation: clear to auscultation bilaterally, no rales and no wheezes Cardio Rate: regular rate Rhythm: regular rhythm Heart sounds: no murmurs GI Palpation (GI): Soft to palpation and nontender Auscultation: normal bowel sounds General: Yes no CVA tenderness Back/Spine/Pelvis Back: no CVA tenderness Thoracic/Lumbar Spine: lumbar spinal tenderness at L3, at L4 and at L5 Skin Rashes: no rashes Extrem General: Yes no clubbing, cyanosis or edema Results Reviewed Results Reviewed: Laboratory Tests 09/19/24 10:38 WBC 6.4 Hgb 15.4 Hct 45.4 Plt Count 236 Sodium 140 Potassium 4.6 Creatinine 0.94 Estimated GFR > 60 Fasting Glucose 105 H Calcium 9.3 AST 27 ALT 27 Triglycerides 175 H Cholesterol 165 LDL Cholesterol, Calc 93 HDL Cholesterol 37 L Coding Level of Care Code Est Pt Level 4 (73032) Diagnoses Benign essential hypertension I10 Mixed hyperlipidemia E78.2 Impaired fasting glucose R73.01 Gastroesophageal reflux disease without esophagitis K21.9 Esophagitis presence: without esophagitis Vitamin D deficiency E55.9 Degeneration of intervertebral disc of lumbar region with discogenic back pain and lower extremity pain M51.362 Disc-related pain type: discogenic back pain and lower extremity pain Obesity (BMI 30-39.9) E66.9 Additional Codes PHQ-9 - 35496 - PHQ-9 Billing: Yes ([id number]) Assessment & Plan Assessment & Plan (1) Benign essential hypertension: Code(s): I10 - Essential (primary) hypertension Category: Medical Plan: Reinforced low sodium diet - goal is systolic BP of 120 mm or less Continue Lisinopril 10 mg QD for now but advised again that we will need to consider increasing his dose if his systolic BP remains higher than recommended It is likely that his current increased low back pain is raising his blood pressure Patient is reminded to continue checking and monitoring his blood pressure regularly (2) Mixed hyperlipidemia: Code(s): E78.2 - Mixed hyperlipidemia Category: Medical Plan: Results of his labs done a few days ago reviewed and discussed with patient - his serum TG level has improved from 308 mg/dl a few months ago to now at 175 mg/dl Reinforced low cholesterol diet Will recheck his labs and fasting lipids in 4 months for follow up (3) Impaired fasting glucose: Code(s): R73.01 - Impaired fasting glucose Category: Medical Plan: His FBS was again slightly elevated at 105 mg/dl; he did have his HgbA1c checked previously - was normal at 5.6% when last checked in October 2023 Reinforced low calorie/low carb diet (4) GERD (gastroesophageal reflux disease): Code(s): K21.9 - Gastro-esophageal reflux disease without esophagitis Category: Medical Qualifiers: Esophagitis presence: without esophagitis Qualified Code(s): K21.9 - Gastro-esophageal reflux disease without esophagitis Plan: Dietary restrictions reinforced (5) Vitamin D deficiency: Code(s): E55.9 - Vitamin D deficiency, unspecified Category: Medical Plan: Continue Vitamin D3 1000 units QD (6) Lumbar degenerative disc disease: Comment: S/P left L4-L5 minimally invasive microdiscectomy by Dr. Roldan in 03/2018 Code(s): M51.36 - Other intervertebral disc degeneration, lumbar region Category: Medical Qualifiers: Disc-related pain type: discogenic back pain and lower extremity pain Qualified Code(s): M51.362 - Other intervertebral disc degeneration, lumbar region with discogenic back pain and lower extremity pain Plan: Reinforced activity and weight-lifting restrictions Lumbar spine x-rays done back on 12/2017 revealed (+) multilevel lumbar spondylosis accentuated by congenitally short pedicles, with a bulky disc extrusion at L4-L5 leading to an apparent mass effect on the traversing and exiting portions of the left L4 and left L5 nerve roots He subsequently underwent left L4-L5 minimally invasive microdiscectomy by Dr. Roldan a few months later in 2018 As he reports experiencing increasing pain over his lower back lately, he was sent for repeat lumbar spine x-rays for further evaluation for now - this was done a few days ago and the report is still pending at this time Since he is also reporting now significantly increased low back pain and what appears to be left radiular symptoms, will go ahead and try ordering a repeat lumbar spine MRI for further evaluation Continue Tizanidine 4 mg Q 8 hours PRN for now (7) Obesity (BMI 30-39.9): Code(s): E66.9 - Obesity, unspecified Category: Medical Plan: Reinforced diet/exercise as tolerated/lose weight Plan To return in 4 months for his annual physical examination Orders: Orders MR lumbar spine w con 09/23/24 M51.36 - Other intervertebral disc degeneration, lumbar region Lipid Panel 4 Months E78.00 - Pure hypercholesterolemia, unspecified, Z00.00 - Encounter for general adult medical examination without abnormal findings TSH reflex Free T4 4 Months E78.00 - Pure hypercholesterolemia, unspecified Vitamin D 25-OH Total 4 Months E55.9 - Vitamin D deficiency, unspecified Complete Blood Count Auto Diff 4 Months D64.9 - Anemia, unspecified, Z00.00 - Encounter for general adult medical examination without abnormal findings Comprehensive [place]. Panel Fast 4 Months E78.00 - Pure hypercholesterolemia, unspecified, Z00.00 - Encounter for general adult medical examination without abnormal findings Hemoglobin A1c 4 Months R73.01 - Impaired fasting glucose, Z00.00 - Encounter for general adult medical examination without abnormal findings Prostate Specific Antigen 4 Months N40.0 - Benign prostatic hyperplasia without lower urinary tract symptoms, Z00.00 - Encounter for general adult medical examination without abnormal findings UA CC w/rflx Micro + Cult 4 Months R30.0 - Dysuria
== END 2024-09-23 16:13 | disposition home or self-care (01) ==
PROVIDERS: PCP Internal Medicine; Visit Provider Internal Medicine
DX: I10 Essential (primary) hypertension (principal); E78.2 Mixed hyperlipidemia; E66.9 Obesity, unspecified; Z68.39 Body mass index [BMI] 39.0-39.9, adult; R73.01 Impaired fasting glucose; K21.9 Gastro-esophageal reflux disease without esophagitis; E55.9 Vitamin D deficiency, unspecified; M51.362 Other intervertebral disc degeneration, lumbar region with discogenic back pain and lower extremity pain

== ENCOUNTER → 2024-09-23 15:23 | Outpatient (BNVA) | payer OTHER, SELFPAY | PROVIDERS: PCP Internal Medicine; Visit Provider Internal Medicine | DX: I10 Essential (primary) hypertension (principal); E78.2 Mixed hyperlipidemia; R73.01 Impaired fasting glucose; K21.9 Gastro-esophageal reflux disease without esophagitis; E55.9 Vitamin D deficiency, unspecified; M51.362 Other intervertebral disc degeneration, lumbar region with discogenic back pain and lower extremity pain; E66.9 Obesity, unspecified; Z68.39 Body mass index [BMI] 39.0-39.9, adult; Z79.899 Other long term (current) drug therapy | CPT/HCPCS: 96127 ==

== ENCOUNTER 2024-12-19 12:51 | Outpatient (AMB) | payer OTHER, SELFPAY ==
[2024-12-19 12:58] VITALS: BMI 39.1
--- NOTE | 2024-12-19 12:58 | HO.SPINEOV ---
Vital Signs 12/19/24 12:58 Height 5 ft 6 in Weight 242 lb BMI 39.1 Intake Visit Reasons: LBP Intake Note: Mr. Artemio Aguirre is here today c/o low back pain. [place] Hand Required: No Allergies No Known Allergies Allergy (Verified 12/19/24 12:59) Physical Exam Vital Signs: BMI result Body Mass Index 39.1 Assessment & Plan Assessment & Plan (1) Lumbar degenerative disc disease: Comment: S/P left L4-L5 minimally invasive microdiscectomy by Dr. Roldan in 03/2018 Code(s): M51.36 - Other intervertebral disc degeneration, lumbar region Category: Medical Qualifiers: Disc-related pain type: discogenic back pain and lower extremity pain Qualified Code(s): M51.362 - Other intervertebral disc degeneration, lumbar region with discogenic back pain and lower extremity pain Plan Dear Dr Ferguson, Thank you for referring Mr Felisa Aguirre to our office today. This is a 54-year-old gentleman with a history of a previous left L4-[address] Bates in 2018 with excellent results, who presents with progressive symptoms of bilateral lumbar radiculopathy that started in September. He can not recall any specific inciting event. He does work a very physical manual labor style job. He describes the symptoms as being centralized back pain radiating down both legs going into the buttocks, posterior thigh and into his outer lateral thigh area. It is aggravated with prolonged sitting and prolonged standing. No tingling numbness or weakness associated with it. Occasionally his leg will feel like it is going to give out underneath him. He has tried Motrin, Tylenol, muscle relaxers all without much success. He has previously been through physical therapy and has been doing the home exercises but it is very painful. No cortisone injections or intensive care specialist yet at this point. Was hoping it would just go away but unfortunately it has not. PMH: Reasonably healthy, history of hypertension, he takes lisinopril. Had knee surgery 20 years ago in the back surgery as mentioned above. Social hx: Does not smoke cigarettes, occasional marijuana, occasional alcohol Medications: Lisinopril, vitamin D3, tizanidine Allergies: None Physical exam: Positive for diminished patella reflexes bilaterally, strength grossly normal, straight leg raise positive at 30 degrees on the right, 45 degrees in the left. Sensation is normal. Imaging review: No imaging to review outside of a plain film x-rays showing some mild degenerative disc disease, and an old fracture at T11. Impression: 54-year-old male previous history of L4-[address] [place] [address] Bates presents today with approximately 3-1/2 months of progressively worsening centralized low back pain radiating down both of his legs into his buttock, posterolateral thighs, aggravated with prolonged standing, sitting and extended periods of walking. He has a very physical job, just yesterday had to do a lot of shoveling of snow so he is in significant discomfort today. He has been taking [id number] pain medications as outlined above as well as tizanidine with no relief. He has been doing the home stretching exercises that he learned in physical therapy to no avail. I think it is reasonable we order an MRI to see if he has a recurrent disc herniation. Thank you for allowing us to care for your patient. The total time spent with this visit with this patient was 45 minutes reviewing history, physical exam, lumbar imaging review, and implementation of treatment plan or further diagnostic testing Marco Antonio Wilkins MD,PhD [facility] Orders: Orders MR lumbar spine wo/w con Today M51.362 - Other intervertebral disc degeneration, lumbar region with discogenic back pain and lower extremity pain Coding Level of Care Code New Pt Level 4 (06225) Diagnoses Degeneration of intervertebral disc of lumbar region with discogenic back pain and lower extremity pain M51.362 Disc-related pain type: discogenic back pain and lower extremity pain
== END 2024-12-19 13:21 | disposition home or self-care (01) ==
PROVIDERS: PCP Internal Medicine; Referring Provider Internal Medicine; Visit Provider Physician Assistant
DX: M51.362 Other intervertebral disc degeneration, lumbar region with discogenic back pain and lower extremity pain (principal)
CPT/HCPCS: 99204

== ENCOUNTER → 2024-12-19 12:51 | Outpatient (BNVA) | payer OTHER, SELFPAY | PROVIDERS: PCP Internal Medicine; Referring Provider Internal Medicine; Visit Provider Physician Assistant ==

== ENCOUNTER 2025-10-28 07:05 | Outpatient (REF) | payer OTHER, SELFPAY ==
[2025-10-28 07:42] LABS: MANUAL DIFF FLAG NO
[2025-10-28 08:44] LABS: Hematocrit 46.6 % (42.0-52.0); Hemoglobin 15.7 g/dl (14.0-18.0); Imm Gran Abs Auto 0.02 X10*3/uL (0.00-0.03); Imm Gran Pct Auto 0.3 % (0.0-0.4); Lymphocytes Absolute Auto 2.5 X10*3/uL (1.2-4.9); Mean Corpuscular HGB Conc 33.7 g/dl (31.0-36.0); Mean Corpuscular Hemoglobin 26.4 pg (27.0-33.0); Mean Corpuscular Volume 78.5 fL (80.0-98.0); NRBC Abs Auto 0.000 X10*3/uL (0.0-0.012); NRBC Pct Auto 0.0 /100WBC (0.0-0.2); Platelet Count 291 X10*3/uL (160-400); Red Blood Count 5.94 X10*6/uL (4.60-5.80); White Blood Count 7.6 X10*3/uL (4.8-10.8)
[2025-10-28 09:04] LABS: Appearance Urine Clear; Glucose Urine UA Negative (Negative); PH 5.0 (5.0-9.0); Specific Gravity - Urine 1.015 (1.005-1.025)
[2025-10-28 09:22] LABS: Alanine Aminotransferase 35 U/L (0-40); Albumin Level 4.6 g/dL (3.5-5.0); Alkaline Phosphatase 74 U/L (39-117); Anion Gap 11 (12-20); Aspartate Amino Transferase 23 U/L (5-37); Blood Urea Nitrogen 17 mg/dL (9-16); Calcium 9.4 mg/dL (8.4-10.2); Carbon Dioxide 27 mmol/L (22-29); Chloride 104 mmol/L (96-108); Cholesterol 189 mg/dL (<200); Estimated Glomerular Filt Rate > 60; HDL Cholesterol 37 mg/dL (>40); Potassium 4.5 mmol/L (3.3-5.1); Sodium 137 mmol/L (135-145); Total Protein 7.6 g/dL (6.5-8.0); Triglycerides 135 mg/dL (<150)
[2025-10-28 09:31] LABS: Prostate Specific Antigen 0.94 ng/mL (<0.05-4.0)
== END 2025-10-28 07:06 | disposition home or self-care (01) ==
LOC: HO.LAB 07:05
PROVIDERS: PCP Internal Medicine; Visit Provider Internal Medicine
DX: Z00.00 Encounter for general adult medical examination without abnormal findings (principal); E78.00 Pure hypercholesterolemia, unspecified; E55.9 Vitamin D deficiency, unspecified; N40.0 Benign prostatic hyperplasia without lower urinary tract symptoms; D64.9 Anemia, unspecified; R30.0 Dysuria; R73.01 Impaired fasting glucose; Z12.5 Encounter for screening for malignant neoplasm of prostate
CPT/HCPCS: 36415; 80053; 80061; 81003; 82306; 83036; 84153; 84443; 85025

== ENCOUNTER 2025-11-07 16:51 | Outpatient (AMB) | payer OTHER, SELFPAY ==
[2025-11-07 16:55] VITALS: BP 122/84; PULSE 76; RESP 18; O2SAT 96; BMI 39.9
--- NOTE | 2025-11-07 16:55 | A.OFFPC_ITS ---
Vital Signs 11/07/25 16:55 Height 5 ft 6 in Weight 247 lb BMI 39.9 BP 122/84 Blood Pressure Location Lt brachial Position Sitting Respiration 18 Pulse 76 Pulse Source Pulse Oximeter Temp Source Temporal Artery Scan Pulse Oximetry (%) 96 Oxygen Delivery Method Room Air Intake Visit Reasons: follow up [employer] Required: No Accompanied by: Self / Same As Patient Allergies No Known Allergies Allergy (Verified 11/07/25 17:17) Medication List - Last Reconciled 11/07/25 by Pablo Ferguson MD cholecalciferol (vitamin D3) 25 mcg PO DAILY lisinopril 10 mg PO DAILY 90 days tizanidine 4 mg PO Q8H PRN 30 days Tobacco use date assessed: 11/07/25 Dental Screening Dental Screen Date: 11/07/25 Did you have a dental visit in the last 12 months?: No Did you have a dental problem in the last 6 months where you did not have access to dental care?: No Was dental information given to patient?: No HPI follow up HPI Details - The patient is a 55-year-old male pres enting for follow-up on his chronic back pain and a review of recent lab results. - He reports ongoing back problems, whic h recently caused him to miss three days of work. - The patient denies a recent injury but states the pain worsens with colder weather and he has been experiencing radiating leg pain. - He has a history of knee surgery over 15 years ago but does not recall on which knee. - A previous request for an MRI was [facility], with the insurance company requiring physical therapy first, which he found too painful to complete at the time. - He has been seen by a surgeon's assist ant for his back but has not been to pain management. - The patient notes he has gained weight and that his activity is limited due to his back pain. - He works a third shift, which he state s makes it difficult to eat at regular times. - Recent lab work from two weeks ago umesh wed his HbA1c increased from 6.0% to 6.2%, and his cholesterol levels also went up. [facility] Medical History Mixed hyperlipidemia Vitamin D deficiency Pure hypercholesterolemia Obesity (BMI 30-39.9) Benign essential hypertension Lumbar degenerative disc disease GERD (gastroesophageal reflux disease) Surgical History Hx of colonoscopy History of microdiscectomy Hx of knee surgery Family History Father Hyperlipidemia Mother Hyperlipidemia Diabetes Social History Housing: House Alcohol intake: current Alcohol intake frequency: a few times a week Patient Tobacco Use Status: Former Tobacco user e-Cigarette/Vaping Use: Never Used Second Hand Smoke Exposure: No service: No Current occupational status: employed Cognitive needs: No Hearing needs: No Vision needs: No Questionnaire PHQ-9 Over the last 2 weeks, how often have you been bothered by any of the following problems? 1. Little interest or pleasure in doing things: not at all 2. Feeling down, depressed, or hopeless: not at all 3. Trouble falling or staying asleep, or sleeping too much: more than half the days 4. Feeling tired or having little energy: several days 5. Poor appetite or overeating: not at all 6. Feeling bad about yourself - or that you are a failure or have let yourself or your family down: not at all 7. Trouble concentrating on things, such as reading the newspaper or watching television: not at all 8. Moving or speaking so slowly that other people could have noticed. Or the opposite - being so fidgety or restless that you have been moving around a lot more than usual: not at all 9. Thoughts that you would be better off or of hurting yourself in some way: not at all Total score: 3 Depression Screening Interpretation: Positive Depression Screening Follow-up: Follow-up Visit Requested Depression Screening Done: Yes 48112 - PHQ-9 Billing: Yes Source: Developed by Drs. Maurisio Lopez, Camille Mccray, Hunter Prasad and colleagues, with an educational jessi from [employer]. Thrive Questionnaire Date Thrive assessed: 11/07/25 I am a: Parent/Caregiver What is your living situation today?: I have a steady place to live Within the past 12 months, did the food you bought not last and you didn't have the money to get more?: Never true Within the past 12 months, did you worry whether your food would run out before you got money to buy more?: I choose not to answer this question Do you have trouble paying for medicines?: No Do you have trouble getting transportation to medical appointments?: No Do you have trouble paying your heating and electricity bill?: No Do you have trouble taking care of your child, family member or friend?: No Do you have trouble with day-to-day activities such as bathing, preparing meals, shopping, managing finances, etc.?: No Are you currently unemployed and looking for a job?: No Are you interested in more education?: No Please select the resources that you would like help with: None Currently or been in a relationship where the following occur: No concerns reported THRIVE Score: 0 AUDIT C Alcohol Use Questionnaire (AUDIT-C) 2. How many drinks containing alcohol do you have on a typical day when you are drinking?: 3 or 4 3. How often do you have six or more drinks on one occasion?: Weekly Total Score: 4 Score Reviewed/Action Taken: Yes LLUVIA-7 AMB Questionnaire LLUVIA-7 Date LLUVIA - 7 assessed: 11/07/25 Feeling nervous, anxious, or on edge: 0 = Not at all Not being able to stop or control worryin = Not at all Worrying too much about different things: 0 = Not at all Trouble relaxin = Not at all Being so restless that it is hard to sit still: 0 = Not at all Becoming easily annoyed or irritable: 0 = Not at all Feeling afraid as if something awful might happen: 0 = Not at all Total LLUVIA-7 score (0-4 normal; 5-9 mild; 10-14 moderate; 15-21 severe): 0 Source: Developed by Drs. Maurisio Lopez, Camille Mccray, Hunter Prasad and colleagues, with an educational jessi from [employer]. Review of Systems Const Denies chills, Denies fatigue, Denies fever(s) and Denies headache(s) ENT Denies dysphagia, Denies dizziness, Denies otalgia, Denies headache(s), Denies neck pain, Denies odynophagia and Denies sore throat Card Denies chest pain, Denies irregular heart rhythm, Denies palpitations and Denies dyspnea Resp Denies chest congestion, Denies cough and Denies dyspnea GI Denies abdominal pain, Denies constipation, Denies dysphagia, Denies heartburn, Denies diarrhea, Denies nausea, Denies odynophagia and Denies vomiting Denies difficulty urinating, Denies dysuria, Denies urinary frequency and Denies urinary urgency Musc Reports back pain (over the lower back - increasing), Denies arthralgias and Denies neck pain Skin/Breast Denies rash Neuro Denies dizziness, Denies headache(s) and Denies paresthesias Endo Denies fatigue and Denies palpitations Physical exam (Primary Care) Vital Signs: Last Vital Signs Pulse 76 11/07/25 16:55 Resp 18 11/07/25 16:55 BP 122/84 11/07/25 16:55 Pulse Ox 96 11/07/25 16:55 Oxygen Delivery Method Room Air 11/07/25 16:55 BMI result Body Mass Index 39.9 Tobacco/Smoking Status: Tobacco use Status Tobacco use date assessed 11/07/25 11/07/25 17:05 Patient Tobacco Use Status Former Tobacco user 11/07/25 17:05 e-Cigarette/Vaping Use Never Used 11/07/25 17:05 PHQ-9: PHQ-9 Score PHQ-9: Total score 3 11/07/25 17:17 Depression Screening Interpretation: Positive Depression Screening Follow-up: Follow-up Visit Requested Thrive Assessment: Date of Thrive Assessment Date Thrive assessed 11/07/25 11/07/25 17:05 Currently or been in a relationship where the following occur: No concerns reported Const General: no acute distress and alert HENMT Ears: TM's normal bilaterally and EAC's normal Throat: Yes posterior oropharynx normal and Yes tonsils normal (no TP congestion) Neck Neck: Yes no lymphadenopathy and Yes supple Thyroid: Thyroid normal Resp Auscultation: clear to auscultation bilaterally, no rales and no wheezes Cardio Rate: regular rate Rhythm: regular rhythm Heart sounds: no murmurs GI Palpation (GI): Soft to palpation and nontender Auscultation: normal bowel sounds General: Yes no CVA tenderness Back/Spine/Pelvis Back: no CVA tenderness Thoracic/Lumbar Spine: lumbar spinal tenderness at L3, at L4 and at L5 Skin Rashes: no rashes Extrem General: Yes no clubbing, cyanosis or edema Results Reviewed Results Reviewed: Laboratory Tests 10/28/25 10/28/25 07:35 07:41 WBC 7.6 Hgb 15.7 Hct 46.6 Plt Count 291 Sodium 137 Potassium 4.5 Creatinine 0.84 Estimated GFR > 60 Fasting Glucose 115 H Hemoglobin A1c % 6.2 H Calcium 9.4 AST 23 ALT 35 Triglycerides 135 Cholesterol 189 LDL Cholesterol, Calc 125 H HDL Cholesterol 37 L Prostate Specific Ag 0.94 25-OH Vitamin D Total 36.5 TSH 2.20 Ur Specific [place] 1.015 Urine Protein Negative Urine Glucose (UA) Negative Urine Blood Negative Urine Nitrite Negative Ur Leukocyte Esterase Negative Coding Level of Care Code Est Pt Level 4 (99044) Diagnoses Benign essential hypertension I10 Mixed hyperlipidemia E78.2 Impaired fasting glucose R73.01 Gastroesophageal reflux disease without esophagitis K21.9 Esophagitis presence: without esophagitis Vitamin D deficiency E55.9 Degeneration of intervertebral disc of lumbar region with discogenic back pain and lower extremity pain M51.362 Disc-related pain type: discogenic back pain and lower extremity pain Obesity (BMI 30-39.9) E66.9 Additional Codes PHQ-9 - 09231 - PHQ-9 Billing: Yes ([id number]) Assessment & Plan Assessment & Plan (1) Benign essential hypertension: Code(s): I10 - Essential (primary) hypertension Category: Medical Plan: Reinforced low sodium diet - goal is systolic BP of 120 mm or less Continue Lisinopril 10 mg QD for now - BP appears much better controlled at present Patient is reminded to continue checking and monitoring his blood pressure regularly (2) Mixed hyperlipidemia: Code(s): E78.2 - Mixed hyperlipidemia Category: Medical Plan: Results of his labs done about 10 days ago reviewed and discussed with patient - his total and LDL cholesterol have increased slightly from previous, with his LDL cholesterol now at 125 mg/dl Reinforced low cholesterol diet Will recheck his labs and fasting lipids in 4 months for follow up (3) Impaired fasting glucose: Code(s): R73.01 - Impaired fasting glucose Category: Medical Plan: His FBS was again elevated at 115 mg/dl on his recent labs; his HgbA1c is currently at 6.2% (was previously normal at 5.6% back in October 2023) He is advised that his HgbA1c of 6.2% now places him in the borderline diabetic category Reinforced low calorie/low carb diet (4) GERD (gastroesophageal reflux disease): Code(s): K21.9 - Gastro-esophageal reflux disease without esophagitis Category: Medical Qualifiers: Esophagitis presence: without esophagitis Qualified Code(s): K21.9 - Gastro-esophageal reflux disease without esophagitis Plan: Dietary restrictions reinforced (5) Vitamin D deficiency: Code(s): E55.9 - Vitamin D deficiency, unspecified Category: Medical Plan: Continue Vitamin D3 1000 units QD (6) Lumbar degenerative disc disease: Comment: S/P left L4-L5 minimally invasive microdiscectomy by Dr. Roldan in 03/2018 Code(s): M51.36 - Other intervertebral disc degeneration, lumbar region Category: Medical Qualifiers: Disc-related pain type: discogenic back pain and lower extremity pain Qualified Code(s): M51.362 - Other intervertebral disc degeneration, lumbar region with discogenic back pain and lower extremity pain Plan: Reinforced activity and weight-lifting restrictions Lumbar spine x-rays done back on 12/2017 revealed (+) multilevel lumbar spondylosis accentuated by congenitally short pedicles, with a bulky disc extrusion at L4-L5 leading to an apparent mass effect on the traversing and exiting portions of the left L4 and left L5 nerve roots He subsequently underwent left L4-L5 minimally invasive microdiscectomy by Dr. Roldan a few months later in 2018 As he reports experiencing increasing pain over his lower back lately, he was sent for repeat lumbar spine x-rays for further evaluation for now - this was done a few days ago and the report is still pending at this time Due to his significantly increased low back pain and what appears to be left radicular symptoms, we tried sending him for a repeat lumbar spine MRI for further evaluation at his previous visit but this was denied by his insurance Will try referring him back to physical therapy but will also refer him for pain management evaluation for his increasing low back pain Continue Tizanidine 4 mg Q 8 hours PRN for now (7) Obesity (BMI 30-39.9): Code(s): E66.9 - Obesity, unspecified Category: Medical Plan: Reinforced diet/exercise as tolerated/lose weight Plan To return in 4 months for his annual physical examination Orders: Orders Complete Blood Count Auto Diff 4 Months D64.9 - Anemia, unspecified PT Evaluation and Treatment 11/07/25 M51.362 - Other intervertebral disc degeneration, lumbar region with discogenic back pain and lower extremity pain Comprehensive [place]. Panel Fast 4 Months E78.00 - Pure hypercholesterolemia, unspecified Lipid Panel 4 Months E78.00 - Pure hypercholesterolemia, unspecified Hemoglobin A1c 4 Months R73.01 - Impaired fasting glucose Referrals Pain Management Referral M51.362 - Other intervertebral disc degeneration, lumbar region with discogenic back pain and lower extremity pain, M54.50 - Low back pain, unspecified
== END 2025-11-07 17:29 | disposition home or self-care (01) ==
LOC: HO.HMCH 16:52
PROVIDERS: PCP Internal Medicine; Visit Provider Internal Medicine
DX: I10 Essential (primary) hypertension (principal); E78.2 Mixed hyperlipidemia; R73.01 Impaired fasting glucose; K21.9 Gastro-esophageal reflux disease without esophagitis; E55.9 Vitamin D deficiency, unspecified; M51.362 Other intervertebral disc degeneration, lumbar region with discogenic back pain and lower extremity pain; E66.9 Obesity, unspecified

== ENCOUNTER → 2025-11-07 16:51 | Outpatient (BNVA) | payer OTHER, SELFPAY | PROVIDERS: PCP Internal Medicine; Visit Provider Internal Medicine | DX: Z13.31 Encounter for screening for depression (principal); Z13.39 Encounter for screening examination for other mental health and behavioral disorders | CPT/HCPCS: 96127 ==